=== PATIENT | male | born 1950 | race Two or more races ===

== ENCOUNTER 2018-02-01 10:57 | Emergency (ER) | payer OTHER ==
[~2018-02-01] VITALS: Ht 170.2 cm; Wt 54.4 kg
[2018-02-01 11:46] LABS: Basophils # (auto) 0 uL; Basophils % (auto) 0.6 % (0.0-2.0); Eosinophils # (auto) 0.1 uL; Eosinophils % (auto) 1.4 % (0.0-7.0); Hematocrit 39.8 % (41.0-53.0); Hemoglobin 13.7 g/dL (13.5-17.5); Lymphocytes # (auto) 0.8 uL; Lymphocytes % (auto) 15.2 % (10.0-50.0); Mean Corpuscular Hemoglobin 31.7 pg (28.0-32.0); Mean Corpuscular Hgb Conc. 34.3 g/dL (32.0-36.0); Mean Corpuscular Volume 92.5 fL (80.0-100.0); Monocytes # (auto) 0.5 uL; Monocytes % (auto) 9.3 % (0.0-12.0); Neutrophils # (auto) 3.7 uL; Neutrophils % (auto) 73.5 % (37.0-80.0); Platelet Count (auto) 272 10^3/uL (140-450); Red Blood Cells 4.31 10^6/uL (4.5-5.90); Red Cell Distribution Width 11.9 % (11.8-14.3)
[2018-02-01 12:14] LABS: Alanine Aminotransferase 8 U/L (16-61); Albumin 3.7 g/dL (3.4-5.0); Alkaline Phosphatase 72 U/L (45-117); Anion Gap 4 (5-15); Aspartate Aminotransferase 29 U/L (15-37); Bilirubin, Total 0.8 mg/dL (0.2-1.0); Blood Urea Nitrogen 20 mg/dL (7-18); Calcium 8.7 mg/dL (8.5-10.1); Carbon Dioxide 26 mmol/L (21-32); Chloride 109 mmol/L (98-107); GFR African American 130 mL/min; GFR Non-African American 107 mL/min; Glucose 96 mg/dL (74-106); Magnesium 2.5 mg/dL (1.6-2.6); Potassium 4.3 mmol/L (3.5-5.1); Sodium 139 mmol/L (136-145); Total Protein 7.4 g/dL (6.4-8.2)
[2018-02-01 13:00] VITALS: BP 132/78
[2018-02-01] MEDS ORDERED: CARB10TA PO (14:03)
== END 2018-02-01 15:02 | disposition home or self-care (01) ==
LOC: ER 10:57 → EDBD 10:57 → ER 14:55
DX: G20 Parkinson's disease (principal)
CPT/HCPCS: 36415; 70450; 71046; 80053; 83735; 84484; 85025; 93005; 94761

== ENCOUNTER 2018-04-09 18:00 | Observation (INO) | payer OTHER ==
[~2018-04-09] VITALS: Ht 177.8 cm; Wt 56.7 kg
[~2018-04-09 18:00] MED LIST: CARB10TA PO
[2018-04-09] MEDS ORDERED: SODIUM CHLORIDE 0.9% 1,000 ML IVB ONE (18:46)
[2018-04-09 18:51] LABS: Basophils # (auto) 0 uL; Basophils % (auto) 0.7 % (0.0-2.0); Eosinophils # (auto) 0.1 uL; Hematocrit 38.1 % (41.0-53.0); Lymphocytes # (auto) 0.8 uL; Lymphocytes % (auto) 14.7 % (10.0-50.0); Mean Corpuscular Hemoglobin 31.4 pg (28.0-32.0); Mean Corpuscular Hgb Conc. 34.2 g/dL (32.0-36.0); Monocytes # (auto) 0.4 uL; Monocytes % (auto) 7.7 % (0.0-12.0); Neutrophils % (auto) 75.9 % (37.0-80.0); Platelet Count (auto) 286 10^3/uL (140-450); Red Blood Cells 4.15 10^6/uL (4.5-5.90); Red Cell Distribution Width 12.6 % (11.8-14.3); White Blood Cell 5.3 10^3/uL (4.4-10.8)
[2018-04-09 19:12] LABS: Alanine Aminotransferase 8 U/L (16-61); Albumin 3.5 g/dL (3.4-5.0); Anion Gap 5 (5-15); Aspartate Aminotransferase 19 U/L (15-37); BUN/Creatinine Ratio 20.5; Blood Urea Nitrogen 15 mg/dL (7-18); Calcium 8.4 mg/dL (8.5-10.1); Carbon Dioxide 26 mmol/L (21-32); Chloride 108 mmol/L (98-107); GFR African American 137 mL/min; GFR Non-African American 114 mL/min; Glucose 98 mg/dL (74-106); Magnesium 2.3 mg/dL (1.6-2.6); Sodium 139 mmol/L (136-145)
[2018-04-09 19:17] LABS: Alkaline Phosphatase 75 U/L (45-117); Bilirubin, Total 0.5 mg/dL (0.2-1.0); Total Protein 7.5 g/dL (6.4-8.2)
[2018-04-09 19:20] LABS: INR 0.96 (0.9-1.15); Partial Thromboplastin Time 27.1 sec (23.78-33.04); Prothrombin Time 10.3 sec (9.27-12.13)
[2018-04-09 22:34] LABS: Urine Bacteria FEW /hpf (None Seen); Urine Blood Negative /uL (Negative); Urine Mucus FEW (None Seen); Urine Specific Gravity 1.016 (1.001-1.035); Urine WBC 3 /hpf (0 - 3)
[2018-04-10 00:03] VITALS: BP 124/76
== END 2018-04-10 00:39 | disposition short-term general hospital (02) | DRG 57 ==
LOC: EDBD 18:00 → ER 18:00 → OVERFLOW 18:01 → ER 04-10 00:39
PROVIDERS: ADMIT Family Medicine; ATTEND Family Medicine
DX: G20 Parkinson's disease (principal); D64.9 Anemia, unspecified; M16.0 Bilateral primary osteoarthritis of hip; R62.7 Adult failure to thrive; E87.8 Other disorders of electrolyte and fluid balance, not elsewhere classified; R29.6 Repeated falls
CPT/HCPCS: 36415; 71045; 72192; 73610; 80053; 81001; 83605; 83735; 84484; 85025; 85610; 85730; 87040; 93005; 96360; 96361; 99291; G0378; J7030

== ENCOUNTER 2022-06-22 04:13 | Emergency (ER) | payer OTHER ==
[~2022-06-22] VITALS: Ht 170.2 cm; Wt 54.5 kg
[~2022-06-22 04:13] MED LIST changes: +CARB-79 PO; -CARB10TA PO
[2022-06-22] MEDS ORDERED: ACETAMINOPHEN 500 MG TAB PO ONE (07:15)
[2022-06-22 07:20] VITALS: BP 128/61
[2022-06-22] MEDS ORDERED: MELO7.5T9 PO (07:33)
== END 2022-06-22 07:40 | disposition home or self-care (01) ==
LOC: EDBD 04:13 → EDSEX 04:13 → ER 04:13
DX: M19.012 Primary osteoarthritis, left shoulder (principal); Z79.899 Other long term (current) drug therapy; Z88.0 Allergy status to penicillin
CPT/HCPCS: 73030; 93005

== ENCOUNTER 2022-07-28 12:25 | Emergency (ER) | payer OTHER ==
[~2022-07-28] VITALS: Ht 170.2 cm; Wt 66.6 kg
[~2022-07-28 12:25] MED LIST changes: +MELO7.5T9 PO
[2022-07-28] MEDS ORDERED: HYDROcodone-ACET 5/325MG TAB PO ONE (14:15)
[2022-07-28 15:24] VITALS: BP 142/78
== END 2022-07-28 15:26 | disposition home or self-care (01) ==
LOC: EDUNIT# 12:25 → EDBD 12:25 → ER 12:29
DX: M19.012 Primary osteoarthritis, left shoulder (principal); F12.10 Cannabis abuse, uncomplicated; Z88.0 Allergy status to penicillin
CPT/HCPCS: 73030